=== PATIENT | male | born 1990 | race Caucasian/White ===

== ENCOUNTER 2016-12-01 09:54 | Emergency (ER) | payer OTHER ==
[~2016-12-01] VITALS: Ht 200.7 cm; Wt 125.8 kg
[2016-12-01 11:26] VITALS: BP 122/75
== END 2016-12-01 11:26 | disposition home or self-care (01) ==
LOC: ED 09:54
DX: S02.609A Fracture of mandible, unspecified, initial encounter for closed fracture (principal); W18.30XA Fall on same level, unspecified, initial encounter; Y99.8 Other external cause status; Y93.89 Activity, other specified; Y92.89 Other specified places as the place of occurrence of the external cause
CPT/HCPCS: J0690; J3490